=== PATIENT | female | born 1970 | race Caucasian/White ===

== ENCOUNTER 2019-10-22 17:40 | Emergency (ER) | payer MEDICAID, SELFPAY ==
[2019-10-22 17:41] VITALS: BP 101/77; PULSE 76; RESP 18; TEMP 36.9; O2SAT 100; BMI 28.2
--- NOTE | 2019-10-22 17:52 | ED.RN ---
CALL TO DAUGHTER LUBA, , PLEASE CALL WHEN READY TO GO HOME
--- NOTE | 2019-10-22 18:22 | EKG12_ITS ---
Test Reason : GEN ILLNESS Blood Pressure : / mmHG Vent. Rate : 064 BPM Atrial Rate : 064 BPM P-R Int : 122 ms QRS Dur : 084 ms QT Int : 428 ms P-R-T Axes : 066 065 069 degrees QTc Int : 441 ms Normal sinus rhythm with sinus arrhythmia Nonspecific ST abnormality Abnormal ECG Confirmed by DENNYS CARRINGTON, JEANNA ([id number]), staff editor ANA ALONZO ([id number]) on 10/27/2019 8:06:59 AM Referred By: MELANI Confirmed By:JEANNA NOYOLA MD
--- NOTE | 2019-10-22 18:37 | ED.VIS.GEN ---
History of Present Illness Chief Complaint: General Illness Onset: Today Narrative: 49-year-old female with past medical history of fibromyalgia presents with concern for weakness. 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 States that she felt lightheaded and went to sit down. Her coworker states that she passed out. She did not fall to the ground or hit her head. She denies any chest pain, shortness of breath. States that she is feeling improved but is slightly lightheaded. Denies any vaginal bleeding or discharge. Past Medical History - Allergies and Home Meds Allergies/Adverse Reactions: Allergies NARCOTICS Allergy (Uncoded 10/22/19 17:44) Itching Primary Care Physician: Care Physician,No Primary [Primary Care Provider] - Past Medical History: - - fibromyalgia Surgical History: hysterectomy Lives: Spouse/ Significant Other Smoking Status: Current every day smoker Alcohol: None Drugs: None Review of Systems General: Denies: Chills, Fever, Sweats Eyes: Denies: Visual changes - bilaterally, Diplopia ENT: Denies: Rhinorrhea, Sore throat Cardiovascular: Denies: Chest pain, Palpitations Respiratory: Denies: Dyspnea, Cough, Dyspnea on exertion Gastrointestinal: Denies: Abdominal pain, Nausea, Vomiting, Diarrhea, Melena, Hematochezia Genitourinary: Denies: Dysuria, Hematuria, Frequency Musculoskeletal: Denies: Back pain, Extremity Pain Skin: Denies: Rash, Wounds Neurological: Reports: Weakness, - - dizziness. Denies: Headache, Numbness Physical Exam Vital Signs/Narrative: Vital Signs Temp Pulse Resp BP Pulse Ox 10/22/19 17:41 98.4 F 76 18 101/77 100 Inital Vital Signs reviewed: Yes General: Well nourished, Well developed, No Acute Distress Head: Normocephalic, Atraumatic Eyes: Perrl, EOMI ENT: Moist mucous membranes, No rhinorrhea Neck: Supple, Nontender Cardiovascular: Regular rate, Regular rhythm, No murmurs Respiratory: No distress, CTA bilaterally, Chest nontender Abdomen: Soft, Nontender, Nondistended, Normal bowel sounds Back: Nontender, Normal Inspection Extremities: Nontender, No edema Skin: Normal color, No rash Neurological: Alert, Oriented x3, Cranial nerves II-XII grossly intact, Normal Strength, Normal Sensation Psychological: Normal affect, Normal Mood Diagnostic/Tx/Re-eval Laboratory Data 10/22/19 10/22/19 18:42 18:42 WBC 9.6 RBC 5.08 Hgb 15.9 H Hct 48.5 H MCV 95.5 MCH 31.3 MCHC 32.8 RDW Std Deviation 44.1 H RDW Coeff of Frank 12.4 Plt Count 167 MPV 11.1 Immature Gran % (Auto) 0.400 Neut % (Auto) 67.3 Lymph % (Auto) 27.1 [place]iscoe % (Auto) 3.9 Eos % (Auto) 0.8 Baso % (Auto) 0.5 Absolute Neuts (auto) 6.4 Absolute Lymphs (auto) 2.59 Nucleated RBC % 0 Sodium 141 Potassium 4.6 Chloride 109 H Carbon Dioxide 26.0 Anion Gap 6 BUN 20 H Creatinine 1.04 H Estim Creat Clear Calc 60.58 Est GFR (MDRD) Af Amer 72 Est GFR (MDRD) Non-Af 60 BUN/Creatinine Ratio 19.2 Glucose 91 Calcium 9.1 Total Bilirubin 0.50 AST 26 ALT 27 Alkaline Phosphatase 124 H Troponin I < 0.015 Total Protein 7.5 Albumin 4.0 Globulin 3.5 Albumin/Globulin Ratio 1.1 - Rhythm Strip Rhythm Strip: Sinus Rhythm Rate: 64 Ectopy: None - EKG Initial EKG Interpretation: Sinus Rhythm - Sinus rhythm at 64 bpm. VT interval 122 ms. QRS of 84 ms. No evidence of ST elevation or depression at this time. - Medical Decision Making Appears well nontoxic. Vital signs within normal limits. EKG nonischemic. Troponin and other lab work within normal limits. Some mild volume depletion. Patient was given 1 L normal saline and is feeling much improved. Will be asked to follow-up with primary care provider and return for any new or worsening symptoms. Patient agreeable and discharged home in stable condition. ED Disposition - Plan for ED Patient: Disposition: Home or Assisted Living Diagnosis: Syncope, Volume depletion Referrals: Trent Welch MD [STAFF PHYSICIAN] -
[2019-10-22] MEDS: 0.9% Normal Saline 1,000 ML 1000 ML IV (18:40)
--- NOTE | 2019-10-22 18:44 | ED.RN ---
NO OLD EKGS IN MUSE
[2019-10-22 19:00] LABS: Absolute Lymphocyte Count 2.59 X10^3/uL (0.83-4.51); Absolute Neutrophil Count 6.4 X10^3/uL (2.0-7.7); Basophil# 0.05 X10^3/uL; Basophil% 0.5 % (0-1); Eosinophil# 0.08 X10^3/uL; Eosinophils% 0.8 % (0-5); Hematocrit 48.5 % (37-47); Hemoglobin 15.9 g/dL (12.0-15.0); Lymphocyte # 2.59 X10^3/ul (4.0); Lymphocyte % 27.1 % (19-41); Mean Corp Hgb Conc 32.8 g/dL (32-36); Mean Corpuscular Hgb 31.3 pg (27.0-32.0); Mean Corpuscular Volume 95.5 fL (81-99); Mean Platelet Vol. 11.1 fl (6.2-12.0); Monocyte# 0.37 X10^3/uL; Monocyte% 3.9 % (0-10); NRBC Flagged by Analyzer 0 % (0-5); Neutrophil # 6.43 X10^3/uL (2.7-7.7); Neutrophil % 67.3 % (47-70); Platelet Count 167 K/mm3 (150-450); RBC Distribution Width CV 12.4 % (11.6-14.6); RBC Distribution Width SD 44.1 fl (35.1-43.9); Red Blood Count 5.08 M/mm3 (4.2-5.4); White Blood Count 9.6 K/mm3 (4.4-11.0)
[2019-10-22 19:29] VITALS: BP 113/83; BP 118/79; BP 123/84; PULSE 67; PULSE 72; PULSE 77
[2019-10-22 19:37] LABS: ALB/GLOB Ratio 1.1 RATIO (0.9-2.4); AST(SGOT) 26 U/L (15-37); Alanine Aminotransfer ALT/SGPT 27 U/L (13-56); Alkaline Phosphatase 124 U/L (45-117); Anion Gap 6 (5-15); BUN 20 mg/dL (7-18); BUN/Creat Ratio 19.2 RATIO (10-20); Calcium,Total 9.1 mg/dL (8.5-10.1); Chloride 109 mmol/L (98-107); Creatinine, Serum 1.04 mg/dL (0.55-1.02); EST Glomerular Filtration Rate 60 mL/min (>60); Est Glom Filt Rate - Afr Amer 72 mL/min (>60); Estimated Creatinine Clearance 60.58 ml/min; Globulin 3.5 g/dL (2.2-4.2); Glucose 91 mg/dL (74-106); Potassium 4.6 mmol/L (3.5-5.1); Protein, Total 7.5 g/dL (6.4-8.2); Sodium Level 141 mmol/L (136-145)
[2019-10-22 19:49] VITALS: BP 114/83; PULSE 70; RESP 11; O2SAT 97
[2019-10-22 20:37] VITALS: BP 114/83; PULSE 70; RESP 16; O2SAT 99
== END 2019-10-22 20:39 | disposition home or self-care (01) ==
PROVIDERS: Emergency Provider Emergency Medicine
DX: E86.9 Volume depletion, unspecified (principal); R55 Syncope and collapse; F17.200 Nicotine dependence, unspecified, uncomplicated
CPT/HCPCS: 80053; 84484; 85025; 93005; 96360; 99285; J7030; A4216

== ENCOUNTER 2020-01-05 12:02 | Emergency (ER) | payer MEDICAID, SELFPAY ==
[2020-01-05 12:04] VITALS: BP 115/80; PULSE 73; RESP 16; TEMP 36.4; O2SAT 100; BMI 25.8
--- NOTE | 2020-01-05 12:19 | ED.DCSUM_ITS ---
History of Present Illness Chief Complaint: Numb/Ting Informant: Patient Onset: Weeks - 6 weeks Context: Gradual Onset Timing: Waxes and wanes Current Severity: Moderate Maximum Severity: Severe Narrative: Patient presents with numbness and tingling to her bilateral hands and distal forearms for the past 6 weeks. She does do a lot of repetitive motion at work and states that she initially developed burning pain and tingling in her hands it is now progressed up into the forearms. She states she will wake at night with severe pain. She is left-hand dominant. She denies dropping items or loss of coordination. She has not been taking anything for pain. Past Medical History - Allergies and Home Meds Allergies/Adverse Reactions: Allergies NARCOTICS Allergy (Uncoded 01/05/20 12:03) Itching Primary Care Physician: Care Physician,No Primary [Primary Care Provider] - Past Medical History: None Surgical History: hysterectomy Smoking Status: Current every day smoker Review of Systems General: Denies: Chills, Fever Eyes: Denies: Visual changes - bilaterally ENT: Denies: Bilateral ear pain Cardiovascular: Denies: Chest pain Respiratory: Denies: Dyspnea, Cough Gastrointestinal: Denies: Abdominal pain, Vomiting, Diarrhea Genitourinary: Denies: Dysuria Musculoskeletal: Reports: Extremity Pain Neurological: Reports: Parasthesia Hematologic: Denies: Easy bruising, Easy bleeding Allergy: Denies: Uticaria Physical Exam Vital Signs/Narrative: Vital Signs Temp Pulse Resp BP Pulse Ox 01/05/20 12:04 97.5 F L 73 16 115/80 100 Inital Vital Signs reviewed: Yes General: Well nourished, Well developed Head: Normocephalic ENT: Moist mucous membranes Neck: Supple Cardiovascular: Regular rate, Regular rhythm Respiratory: No distress, CTA bilaterally Abdomen: Soft, Nontender Extremities: - - Patient has pain bilaterally over the carpal tunnel as well as increased pain with extension of her wrist. No bony tenderness noted. She does have good cap refill distally with good sensation. No tenderness at the elbows or shoulders. Skin: Normal color Neurological: Alert, Oriented x3 Psychological: Normal affect Diagnostic/Tx/Re-eval - Medical Decision Making Sent with bilateral carpal tunnel. She will be given Velcro wrist splints bilaterally. She is written for anti-inflammatories along with a burst of steroids to help with edema. She is referred to Dr. Abreu, on-call for orthopedics. ED Disposition - Plan for ED Patient: Disposition: Home or Assisted Living Diagnosis: Carpal tunnel syndrome Instructions: ED Carpal Tunnel Prescriptions: Prednisone [Deltasone] 40 mg PO DAILY #10 tab Transmission Status: Pending to [facility] ([email or web address] Naproxen [Naprosyn] 500 mg PO BID PRN PRN #20 tab PRN Reason: Pain Score 4-10/10 Transmission Status: Pending to [facility] ([email or web address] Referrals: Dewayne Abreu DO [STAFF PHYSICIAN] - As soon as possible
[2020-01-05 12:20] VITALS: RESP 16
[2020-01-05] MEDS: Naproxen 500 MG Tablet PO (12:22)
[2020-01-05] MEDS: predniSONE 20 MG Tablet 40 MG PO (12:22)
== END 2020-01-05 12:56 | disposition home or self-care (01) ==
LOC: ED 12:32
PROVIDERS: Emergency Provider Emergency Medicine
DX: G56.03 Carpal tunnel syndrome, bilateral upper limbs (principal); F17.200 Nicotine dependence, unspecified, uncomplicated
CPT/HCPCS: 99284